=== PATIENT | male | born 1975 | race African-American/Black ===

== ENCOUNTER 2021-11-09 14:19 | Emergency (ER) | payer MEDICAID ==
[~2021-11-09] VITALS: Ht 185.4 cm; Wt 100.0 kg
[2021-11-09 14:52] VITALS: BP 163/112
== END 2021-11-09 21:14 | disposition left against medical advice (07) ==
LOC: ER 14:28
DX: Z53.21 Procedure and treatment not carried out due to patient leaving prior to being seen by health care provider (principal)

== ENCOUNTER 2022-01-05 08:28 | Emergency (ER) | payer MEDICAID ==
[~2022-01-05] VITALS: Ht 182.9 cm; Wt 73.0 kg
[2022-01-05 08:49] VITALS: BP 149/94
[2022-01-05] MEDS ORDERED: ACETAMINOPHEN 325MG TABLET PO ONE (09:00)
== END 2022-01-05 09:30 | disposition home or self-care (01) ==
LOC: ER 08:39
DX: L98.499 Non-pressure chronic ulcer of skin of other sites with unspecified severity (principal); Z59.00 Homelessness unspecified; I10 Essential (primary) hypertension; Z87.891 Personal history of nicotine dependence
CPT/HCPCS: 99283

== ENCOUNTER 2022-01-30 21:10 | Emergency (ER) | payer MEDICAID ==
[~2022-01-30] VITALS: Ht 188 cm; Wt 91.8 kg
[2022-01-30 21:40] VITALS: BP 139/90
[2022-01-30] MEDS ORDERED: HYDROCODONE/ACETAMINOPHEN 5/325MG TABLET PO STA (22:48)
[2022-01-31] MEDS ORDERED: IBUP-2029 PO (01:22)
[2022-01-31] MEDS ORDERED: HYDROCODONE/ACETAMINOPHEN 5/325MG TABLET PO NR (01:45)
== END 2022-01-31 01:45 | disposition home or self-care (01) ==
LOC: ER 21:10
DX: S69.81XA Other specified injuries of right wrist, hand and finger(s), initial encounter (principal); W50.2XXA Accidental twist by another person, initial encounter; Y93.89 Activity, other specified; Y92.89 Other specified places as the place of occurrence of the external cause; Y99.8 Other external cause status
CPT/HCPCS: 73130; 99283